=== PATIENT | male | born 1995 | race African-American/Black ===

== ENCOUNTER 2016-05-25 12:49 | Emergency (ER) | payer OTHER ==
[~2016-05-25] VITALS: Ht 188 cm; Wt 88.5 kg
[2016-05-25 13:00] VITALS: BP 151/80
--- NOTE | 2016-05-25 13:44 | RADIOLOGY REPORT ---
EXAMINATION: XR WRIST, HAND, RIGHT CLINICAL INFORMATION: Pain and swelling status post fall. COMPARISON: None. TECHNIQUE: 4 views of the wrist, 3 views of the hand. FINDINGS: Bone mineral density is maintained without evidence of fracture or dislocation. No focal osseous lesions are seen. Joint space is maintained without productive or erosive changes. IMPRESSION: Unremarkable examinations.
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
[2016-05-25] MEDS ORDERED: NAPROSYN500 M1 PO (13:56)
== END 2016-05-25 14:07 ==
LOC: ERH 12:49
DX: S63.91XA Sprain of unspecified part of right wrist and hand, initial encounter (principal); V18.0XXA Pedal cycle driver injured in noncollision transport accident in nontraffic accident, initial encounter
CPT/HCPCS: 73110-RT; 73130-RT